=== PATIENT | female | born 2000 | race Two or more races ===

== ENCOUNTER 2024-10-08 21:19 | Inpatient (IN) | payer MEDICAID, SELFPAY ==
[2024-10-08 21:20] VITALS: BMI 16.7
--- NOTE | 2024-10-08 22:04 | XR_ITS ---
Examination: Complete OB ultrasound, less than 14 weeks, transabdominal Date and time of exam: October 09, 2024 0028 hrs. Indications: Onset vaginal bleeding today Technique: Obstetrical ultrasound images less than 14 weeks performed via transabdominal imaging Findings: Uterus 11.0 x 4.8 x 8.0 cm Molar in appearance in the endometrium with possible irregular intrauterine gestational sac 1.3 cm corresponding to 6 weeks 2 days gestational age Right ovary 5.7 x 2.4 3.1 cm arterial flow 25 mm cyst Left ovary 3.1 x 3.2 cm arterial flow Impression: Findings suspicious for lumbar with no viable fetus Recommend short-term follow-up transvaginal pelvic sonography
--- NOTE | 2024-10-08 22:04 | PD.EDRME ---
Rapid Medical Screening Exam RME Arrival date/time: 10/08/24 21:19 Chief Complaint: Vaginal Bleeding Time Seen by Provider: 10/08/24 22:01 Vital signs: Vital Signs Temperature 98.4 F 10/08/24 22:06 Pulse Rate 94 10/08/24 22:06 Respiratory Rate 18 10/08/24 22:06 Blood Pressure 112/75 10/08/24 22:06 Pulse Oximetry (%) 100 10/08/24 22:06 Oxygen Delivery Method Room Air 10/08/24 22:06 RME Narrative: 24-year-old female patient 1 para 0, came in for evaluation regarding vaginal spotting/vaginal bleeding, onset of symptoms 1 to 2 hours prior to ER visit, severity of symptoms mild. Also complained of right lower abdominal pain. She have a history of ovarian cyst in the past. She tested positive for at home twice.
[2024-10-08 22:06] VITALS: BP 112/75; PULSE 94; RESP 18; TEMP 36.9; O2SAT 100
[2024-10-08 22:50] LABS: Basophils # (Auto) 0.1 Thou/mm3 (0.0-0.2); Basophils % (Auto) 1 % (0-2.5); Eosinophils # (Auto) 0.3 Thou/mm3 (0.0-0.5); Eosinophils % (Auto) 3 % (0-10); Hematocrit 30.6 % (36.0-46.0); Hemoglobin 10.1 g/dL (12.0-16.0); Immature Granulocytes % (Auto) 0 % (0-0); Immature Granulocytes Auto 0.04 Thou/mm3 (0.00-0.00); Lymphocytes # (Auto) 3.3 Thou/mm3 (1.0-4.8); Lymphocytes % (Auto) 27 % (10-50); Mean Corpuscular Hemoglobin 29.2 pg (25.0-35.0); Mean Corpuscular Volume 88 fL (80-100); Monocytes # (Auto) 0.8 Thou/mm3 (0.0-0.8); Monocytes % (Auto) 6 % (0-12); Neutrophils # (Auto) 7.9 Thou/mm3 (1.8-7.7); Neutrophils % (Auto) 63 % (37-80); Nucleated Red Blood Cell % 0 /100 WBC (0); Platelet Count 420 Thou/mm3 (140-440); RDW Standard Deviation 46.9 fL (36.4-46.3); Red Blood Count 3.46 Miln/mm3 (4.00-5.20); White Blood Count 12.5 Thou/mm3 (3.6-11.0)
[2024-10-08 23:03] LABS: Anion Gap 9 (7-16); BUN/Creatinine Ratio 22 Ratio (12-20); Blood Urea Nitrogen 26 mg/dL (9-23); Calcium 10.4 mg/dL (8.3-10.6); Carbon Dioxide 24.9 mMol/L (20.0-31.0); Chloride 101 mMol/L (98-107); Creatinine (Component) 1.2 mg/dL (0.6-1.3); Estimated Creatinine Clearance 56.4 mL/min (>60); Glucose 177 mg/dL (74-106); Osmolality,Calculated 278 (275-295); Potassium 4.4 mMol/L (3.4-5.1); Sodium 135 mMol/L (136-145); eGFR > 60 See Note
[2024-10-08 23:46] LABS: Collection Type, Urine Clean Catch
[2024-10-08 23:54] LABS: Beta HCG,Quantitative 23862 mIU/mL (<5.0)
[2024-10-08 23:55] LABS: Bacteria,Urine 4+; Bilirubin,Urine Negative (Negative); Blood,Urine 2+ (Negative); Clarity,Urine Clear (Clear/Hazy); Color,Urine Lt-Yellow (Lt Yel-Yel); Glucose, Urine Negative (Negative); Hyaline Casts,Urine < 1 /hpf (0-1); Ketones,Urine Negative (Negative); Leukocyte Esterase,Urine Positive (Negative); Nitrite,Urine Positive (Negative); Protein,Urine 1+ (Neg - Trace); RBC,Urine 54 /hpf (0-3); Specific Gravity,Urine 1.016 (1.001-1.035); Squamous Epithelial Cell,Urine 2 /hpf (0-5); Urobilinogen,Urine Negative mg/dL (0.0-1.0); WBC,Urine 109 /hpf (0-5)
--- NOTE | 2024-10-09 02:23 | PRELIM_ITS ---
Obstetric ultrasound (transabdominal). October 09, 2024 0028 hours Clinical history: Vaginal bleedin g Comparison: NoneFindings:The uterus measures 11 x 8 x 4.8 cm. There is a hyperechoic structure with internal anechoic areas within the uterus.A small anechoic sac-like structure is noted in the endome trial cavity. The mean sac diameter measures 1.3 cm, corresponding to 6 weeks and 2 days. No po le or yolk sac is seen at this time. The right ovary measures 5.7 x 2.4 x 3.1 cm and demonstrates an anechoic structure measuring 2.5 x 2 x 2 cm. The left ovary measures 3.1 x 2.1 x 3.2 cm and is unrema rkable.Both ovaries demonstrate color flow signal on Doppler evaluation.No adnexal mass is demonstrat ed.There is no free fluid in the pelvis.Impression:Small anechoic structure in the endometrial cavity without yolk sac or pole. This may represent an early intrauterine gestational sac; however, t he possibility of a pseudosac with an occult ectopic cannot be entirely excluded. Recommend correlation with quantitative beta hCG and close sonographic follow-up.Hyperechoic structure in the uterus with internal anechoic areas. Findings suspicious of partial molar . Recommend clinic al correlation and followup.Right ovarian cyst as described. Discussion Details: Results verbally co mmunicated to : Sage Hua, Nurse Practitioner at 02:11 AM 10/09/2024 Report Electronically Signed B y: Robert Claros 10/09/2024 2:22:20 AM [EST]
--- NOTE | 2024-10-09 03:13 | EDNOTE_ITS ---
<Statement entered by Florinda Duarte MD - 10/19/24 17:36> As co-signing physician, I was present and available for consult prn. I concur with the plan and care as documented by the midlevel provider. ED OB Contraction Preg RMI/HPI General Chief complaint: Vaginal Bleeding Stated complaint: VAGINAL BLEEDING Time Seen by Provider: 10/08/24 22:01 Source: patient Arrival date/time: 10/08/24 21:19 24-year-old female approximately 7 weeks presents emergency department complaining of vaginal spotting that started prior to ER visit with right pelvic pain that is 6 out of 10. Patient denies any fever, chills, nausea vomiting, or any other associated symptom. Mode of arrival: ambulatory Limitations: no limitations RME / HPI RME / HPI Narrative: 24-year-old female patient 1 para 0, came in for evaluation regarding vaginal spotting/vaginal bleeding, onset of symptoms 1 to 2 hours prior to ER visit, severity of symptoms mild. Also complained of right lower abdominal pain. She have a history of ovarian cyst in the past. She tested positive for at home twice. Related Data Home Medications ?Medication ?Instructions ?Recorded ?Confirmed insulin lispro 100 unit/mL sliding scale dose subcut ACHS 10/26/20 subcutaneous solution (Humalog U-100 Insulin) levothyroxine 100 mcg tablet 100 mcg PO QDAY 10/26/20 10/26/20 Previous Rx's ?Medication ?Instructions ?Recorded insulin glargine 100 unit/mL 15 unit (0.15 mL) subcut HS #0 mL 10/28/20 subcutaneous solution (Lantus U-100 Insulin) insulin lispro 100 unit/mL 1 sliding scale dose subcut 10/28/20 subcutaneous solution USEASDIRECTD #10 mL hydrocodone 5 mg-acetaminophen 325 1 tab PO BID PRN pain #10 tabs 09/24/22 mg tablet ibuprofen 600 mg tablet 600 mg PO BID PRN pain #14 tabs 09/24/22 cephalexin 500 mg capsule 500 mg PO QID #28 caps 01/18/24 hydrocodone 5 mg-acetaminophen 325 1 tab PO BID PRN pain #10 tabs 07/28/24 mg tablet cyclobenzaprine 5 mg tablet 5 mg PO Q8H PRN muscle spasm #7 10/11/24 tabs Allergies Allergy/AdvReac Type Severity Reaction Status Date / Time latex Allergy Severe Hives Verified 10/08/24 21:23 Review of Systems Review of Systems Systems Reviewed: All systems reviewed, normal except as documented Constitutional Constitutional: Reports system reviewed and no additional complaints, except as documented, Denies body ache(s), Denies chills and Denies fever(s) Eyes Eyes: Reports system reviewed and no additional complaints, except as documented and Denies change in vision ENT Ears, Nose, Mouth, and Throat: Reports system reviewed and no additional complaints, except as documented, Denies disequilibrium, Denies dizziness, Denies sore throat and Denies vertigo Cardiovascular Cardiovascular: Reports system reviewed and no additional complaints, except as documented, Denies chest pain and Denies dyspnea Respiratory Respiratory: Reports system reviewed and no additional complaints, except as documented, Denies chest congestion, Denies cough and Denies dyspnea Gastrointestinal Gastrointestinal: Reports system reviewed and no additional complaints, except as documented, Reports abdominal pain, Denies nausea and Denies vomiting Genitourinary Genitourinary: Reports abnormal vaginal bleeding and Reports pelvic pain Musculoskeletal Musculoskeletal: Reports system reviewed and no additional complaints, except as documented, Denies abnormal gait and Denies arthralgias Integumentary/Breasts Skin/Breast: Reports system reviewed and no additional complaints, except as documented, Denies erythema, Denies rash and Denies wounds Neurologic Neurologic: Reports system reviewed and no additional complaints, except as documented, Denies abnormal gait, Denies disequilibrium, Denies dizziness and Denies vertigo Past Medical History Past Medical History NEUROLOGIC: Negative Neurological Disorders CARDIAC: Negative Cardiac Disorders or Congestive Heart Failure RESPIRATORY: Negative Chronic Obstructive Pulmonary Disease (COPD) or Asthma GASTROINTESTINAL: Negative Gastrointestinal Disorders GENITOURINARY: Negative Genitourinary Disorders or Renal Disease REPRODUCTIVE: Negative Pelvic Inflammatory Disease MUSCULOSKELETAL: Negative Musculoskeletal Disorders ENDOCRINE: Positive Endocrine Disorders, Diabetes Mellitus Type 1 and Hypothyroidism; Negative Diabetes Mellitus Type 2 HEMATOLOGIC: Negative Blood Disorders or Sickle Cell Disease OTHER HISTORY: Negative Autoimmune Disease, Anesthesia Reactions, Organ Transplant, MRSA, Clostridium Difficile or Cancer Family History FAMILY HISTORY: Negative Family Cardiac Disorders Surgical History SURGICAL: Negative Cardiac Surgery, Endocrine Surgery, Ear Surgery, Abdominal Surgery, Nephrectomy, Joint Replacement, Neurologic Surgery, Mastectomy or Organ Transplant Social History SMOKING STATUS: Never smoker ED Exam General Limitations: Present no limitations General appearance: Present alert and in no apparent distress Head Head exam: Present atraumatic Eye Eye exam: Present normal appearance, PERRL and EOMI ENT ENT exam: Present normal exam, normal oropharynx and mucous membranes moist Neck Neck exam: Present normal inspection, full ROM and trachea midline Chest Chest inspection: Present normal inspection and symmetric chest wall rise Respiratory Respiratory exam: Present normal lung sounds bilaterally Cardiovascular Cardiovascular exam: Present regular rate, normal rhythm and normal heart sounds Abdominal Exam Abdominal exam: Present soft and normal bowel sounds Extremities Exam Extremities exam: Present normal inspection and full ROM Back Exam Back exam: Present normal inspection and full ROM Neurological Exam Neurological exam: Present alert, oriented X3 and CN II-XII intact Psychiatric Psychiatric exam: Present normal affect and normal mood Skin Skin exam: Present warm, dry, intact and normal color Course Quality Measures none Orders Category Date Time Status US OB <= 14 weeks fetus Stat Exams 10/08/24 22:04 Taken ABO/RH Type Stat Lab 10/08/24 22:25 Completed Basic Metabolic Panel Stat Lab 10/08/24 22:25 Completed Beta HCG,Quantitative Stat Lab 10/08/24 22:25 Completed CBC Stat Lab 10/08/24 22:25 Completed Urinalysis Stat Lab 10/08/24 22:50 Completed Vital Signs Vital signs: Vital Signs Temperature 98.4 F 10/08/24 22:06 Pulse Rate 94 10/08/24 22:06 Respiratory Rate 18 10/08/24 22:06 Blood Pressure 112/75 10/08/24 22:06 Pulse Oximetry (%) 100 10/08/24 22:06 Oxygen Delivery Method Room Air 10/08/24 22:06 100% percent room air within normal limits Vaginal Bleeding MDM Narrative MDM Narrative: 24-year-old female approximately 7 weeks presents emergency department complaining of vaginal spotting that started prior to ER visit with right pelvic pain that is 6 out of 10. Patient denies any fever, chills, nausea vomiting, or any other associated symptom. CBC remarkable for leukocytosis 12.5. Hemoglobin 10.1. Beta-hCG greater than 23,000. Ultrasound impression small anechoic structure in the endometrial cavity without yolk sac or pole which may represent early intrauterine gestational sac however the possibility of a pseudosac with local ectopic cannot be entirely excluded. Dr. Lopez consulted reports will admit patient for observation. Patient stable at time of admission. Patient data External records reviewed:: [facility] previous records Clinical information provided by:: patient Social determinants that could affect healthcare access:: none Patient has the following chronic illnesses:: See chart How is presenting disease/condition affected by chronic disease/condition?: uneffected by Evaluation data The following diagnostics were reviewed and interpreted by me:: lab results and radiology exam(s) Lab and/or radiology exams considered but not ordered:: Ordered Interpretation Summary: Interpreted by me Medications / Prescriptions Medications or Prescriptions considered but not ordered:: Ordered Medication administrations:: Medication Administration History Acetaminophen (Acetaminophen 325 Mg Tablet) 650 mg PO Q6H PRN PRN Reason: Fever >101.5 Stop: 11/08/24 03:03 Hydrocodone Bitart/Acetaminophen (Hydrocodone/Apap 5/325 Tablet) 1 tab PO Q4H PRN PRN Reason: PAIN SCALE 4-6 (Moderate Stop: 10/14/24 03:03 Bisacodyl (Bisacodyl 5 Mg Tabec) 10 mg PO QDAY PRN PRN Reason: CONSTIPATION Stop: 11/08/24 03:03 Bisacodyl (Bisacodyl 10 Mg Supp) 10 mg PA QDAY PRN PRN Reason: CONSTIPATION Stop: 11/08/24 03:03 Potassium Chloride/Dextrose/Sod Cl (Kcl 20 Meq/L In D5-1/2ns) 20 meq in 1,000 mls @ 75 mls/hr IV .[id number] AVRIL Stop: 11/08/24 03:14 Ibuprofen (Ibuprofen Tab 600 Mg Tablet) 600 mg PO Q6H PRN PRN Reason: PAIN SCALE 1-3 (mild Stop: 11/08/24 03:03 Ondansetron HCl (Ondansetron Inj 2 Mg/Ml Inj 2 Ml) 4 mg IV Q6H PRN PRN Reason: NAUSEA OR VOMITING Stop: 11/08/24 03:03 Pantoprazole Sodium (Pantoprazole 40 Mg Tablet) 40 mg PO QDAY AVRIL Stop: 11/08/24 08:59 Given Consultations Consultation(s) initiated? (list below): Yes Consultation #1 (Physician, Specialty, Details): Dr. Lopez Diagnosis Vaginal Bleeding Differential Diagnosis: missed , threatened , dysfunctional uterine bleeding, incomplete , ectopic without intrauterine and vaginal bleeding Most likely diagnosis given after review of the tests above:: Ectopic Admission Indicated Admission indicated?: indicated Admission Request Was there a request for admission?: Yes Admission Attestation Admission request attestation: Discussed case with [Dr. Lopez] regarding admission. Discussed patients ED course, exam findings, labs, and radiology results. Dr. Lopez [agrees] to accept the patient for admission. 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 Duarte
[2024-10-09 03:36] VITALS: BP 149/101; PULSE 96; RESP 18; TEMP 36.9; O2SAT 100
[2024-10-09 05:22] VITALS: BP 118/79; PULSE 87; RESP 16; O2SAT 100
[2024-10-09 06:06] VITALS: BMI 17.8
[2024-10-09 06:43] VITALS: BP 127/81; PULSE 85; RESP 18; TEMP 36.5; O2SAT 98
[2024-10-09] MEDS: KCL 20 mEq/L in D5-1/2NS 20 MEQ/1,000 ML BAG 75 MEQ IV (07:14)
[2024-10-09 07:23] VITALS: BP 127/87; PULSE 91; RESP 18; TEMP 36.3; O2SAT 96
--- NOTE | 2024-10-09 08:22 | PD.GYNHP ---
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 RITCHIE is a 24 year old female who presented to the emergency room last night with lower abdominal pain vaginal bleeding in early . Preliminary radiology report was inconclusive between molar versus ectopic corpus luteum cyst. Serum hCG is 28,000. Patient has moderate amount of vaginal bleeding and is stable hemodynamic status Review of Systems Review of Systems Systems Reviewed: All systems reviewed, normal except as documented Meds Home Medications and Allergies Home Medications ?Medication ?Instructions ?Recorded ?Confirmed ?Type insulin pump cartridge,auto 10/09/24 10/09/24 History dose,BT,G6/G7 with controller subcutaneous (Omnipod 5 G6-G7 Intro Kit(Gen 5) subcutaneous cartridge and controller) levothyroxine 150 mcg capsule 150 mcg PO DAILY 10/09/24 10/09/24 History (Tirosint) Allergies Allergy/AdvReac Type Severity Reaction Status Date / Time latex Allergy Severe Hives Verified 10/08/24 21:23 ibuprofen AdvReac Unknown Verified 10/09/24 06:23 Exam - [employer] DAT[employer]ASE ANALYST Vital Signs Temp Pulse Resp BP Pulse Ox O2 Del Method 97.4 F 91 18 127/87 H 96 Room Air 10/09/24 07:23 10/09/24 07:23 10/09/24 07:23 10/09/24 07:23 10/09/24 07:23 10/09/24 07:23 Constitutional Constitutional: no acute distress Routine HEENT Exam Head: Present normocephalic and atraumatic Eye: Present EOMI and PERRL ENT: Present mucous membranes moist Routine Neck Exam Neck: Present supple and trachea midline Routine Respiratory Exam Respiratory: Present chest non-tender, lungs clear, normal breath sounds and no resp distress Routine Cardiovascular Exam Cardiovascular: Present RRR Routine Abdominal Exam Abdominal: Present soft and normoactive bowel sounds Routine Extremities Exam Extremities: Present full ROM Routine Skin Exam Skin: Present intact and dry Routine Neurological Exam Neurological: Present alert, oriented X3 and CN II-XII intact Routine Psychiatric Exam Psychiatric: Present normal affect and normal thought process [employer] ANALYST - Results Labs 10/08/24 22:25 10/08/24 22:25 Labs: Short CBC 10/08/24 Range/Units 22:25 WBC 12.5 H (3.6-11.0) Thou/mm3 Hgb 10.1 L (12.0-16.0) g/dL Hct 30.6 L (36.0-46.0) % Plt Count 420 (140-440) Thou/mm3 BMP 10/08/24 22:25 Sodium 135 L Potassium 4.4 Chloride 101 Carbon Dioxide 24.9 BUN 26 H Creatinine 1.2 Glucose 177 H Calcium 10.4 Urine 10/08/24 Range/Units 22:50 Urine Color Lt-Yellow (Lt Yel-Yel) Urine Clarity Clear (Clear/Hazy) Urine pH 6.0 (5.0-7.0) Ur Specific [place] 1.016 (1.001-1.035) Urine Protein 1+ A (Neg - Trace) Urine Glucose (UA) Negative (Negative) Assessment and Plan Assessment and plan (1) Molar : Status: Acute Assessment and plan: 24-year-old with findings most clinically consistent with molar Plan: Admit to inpatient status, pending final report from radiologist for interpretation of ultrasound findings Patient may require D&C and/or diagnostic laparoscopy Monitor vital signs Reassessment and surgical after radiology report is available Quality Measures Quality Measures none
--- NOTE | 2024-10-09 11:56 | PC.SS ---
Cristian Osei is 24-year-old female admitted to Med-Surg for Ectopic . SS conducted bedside contact with the patient to complete initial assessment and to discuss discharge planning. Patient confirmed demographic information. Patient identifies her mother Lata Barry [phone] as her surrogate decision maker. Patient resides at home with her mother/fiance. Pt states she is able to complete all ADL?s independently, no need for any source of DME. Pts PCP is Dr. Gabriela Dodge and her pharmacy of choice is [facility] in [place]. DC options discussed and pt wishes to return home. Pts family will provide transportation upon DC. No further intervention required at this time, licensed social worker would be available to address any further concerns.
== END 2024-10-09 11:58 | disposition left against medical advice (07) | DRG 566 ==
LOC: SERX 10-09 03:20 → S3NX 10-09 09:22 → SERHOLD 10-10 07:52
PROVIDERS: Nurse Practitioner Family; Admitting Provider Obstetrics & Gynecology; Emergency Provider Emergency Medicine; Visit Provider Obstetrics & Gynecology
DX: O02.0 Blighted ovum and nonhydatidiform mole (principal); Z53.29 Procedure and treatment not carried out because of patient's decision for other reasons
CPT/HCPCS: 36415; 76801; 80048; 81001; 84702; 85025; 86900; 86901; 99285; J2250; J2704; J3010; J3480

== ENCOUNTER → 2025-06-20 | Outpatient (CLI) | payer MEDICAID, SELFPAY ==
--- NOTE | 2025-06-20 13:30 | XR_ITS ---
Examination: Abdomen sonogram, complete Date and time of exam: June 20 thousand 25, 1408 hrs. Indications: Abnormal renal function on laboratory examination 3 weeks ago. Technique: Multiple real-time grayscale transabdominal sonographic images of the abdomen have been obtained. Findings: Normal gallbladder. Normal common bile duct 0.5 cm Pancreatic head 1.5 cm Aorta not enlarged. Liver 15.4 cm no focal liver lesions. Normal hepatopedal portal venous flow Patent IVC Right kidney 9.3 cm cortex 1.7 cm Left kidney 10.1 cm cortex 2.4 cm 9 mm lower pole left renal calculus Spleen 8.1 cm Impression: Normal gallbladder. Liver normal size. 9 mm nonobstructing left renal calculus
--- NOTE | 2025-06-20 13:56 | XR_ITS ---
Examination: Retroperitoneal ultrasound, complete Technique: Multiple high resolution grayscale images of the retroperitoneum obtained, including kidneys and bladder. Exam date and time:June 20, 2025 1416 hrs. Indications: Abnormal renal function on laboratory examination 3 months ago. Findings: Right kidney 9.8 cm cortex 1.8 cm 7 mm midpole calculus. Left kidney 10.0 cm renal cortex 2.2 cm Multiple renal calculi, the largest 8 mm in the lower pole left kidney. No hydronephrosis No bladder mass or bladder calculi. Bladder prevoid volume 299 cc. Impression: Bilateral nonobstructing renal calculi
== END | disposition home or self-care (01) ==
PROVIDERS: PCP Nurse Practitioner Family; Referring Provider Nurse Practitioner Family; Visit Provider Nurse Practitioner Family
DX: N20.0 Calculus of kidney (principal)
CPT/HCPCS: 76700; 76770